=== PATIENT | female | born 1985 | race African-American/Black ===

== ENCOUNTER 2025-08-29 10:07 | Inpatient (IN) | payer OTHER ==
[2025-08-26 13:09] LABS: Hematocrit 32.6 % (34.9-44.5); Hemoglobin 10.1 g/dL (12.0-15.5); Platelet Count 193 10x3/uL (150-450)
[2025-08-26 13:47] LABS: Hep B Surf Ag Non-Reactive S/CO (NonReactive)
[2025-08-26 13:49] LABS: Syphilis Antibody Index 0.08 S/CO (<1.00 Non-Reactive)
[~2025-08-29 10:07] MED LIST: Bicitra 30 ML UDCUP PO PRN; Carboprost 250 MCG/ML AMP IM PRN; Diphenoxylate HCl/Atropine Tablet PO PRN; Famotidine/PF 20 mg/2ml Vial SLOW IVP PRN; Methylergonovine 0.2 MG/ML VIAL IM PRN; Ondansetron PF 4 MG/2 ML Vial IVP PRN; Oxytocin 30 units/NS 500 ML 500 ML IV SCH; Tranexamic Acid 1,000 MG/10 ML VIAL IVP PRN; hydrALAZINE 20 MG/ML VIAL SLOW IVP PRN
[2025-08-29 11:05] VITALS: BMI 38.2
[2025-08-29] MEDS ORDERED: Ketorolac Tromethamine 30 MG (1 mL) VIAL IVP PRN (12:48)
[2025-08-29] MEDS ORDERED: diphenhydrAMINE 50 MG/ML VIAL IVP PRN ×2 (12:48→16:09)
[2025-08-29] MEDS ORDERED: Meperidine HCl/PF 25 MG (1 mL) VIAL SLOW IVP PRN ×2 (12:48→16:09)
[2025-08-29] MEDS ORDERED: HYDROmorphone 0.5 MG/0.5 ML SYRINGE SLOW IVP PRN ×2 (12:48→16:09)
[2025-08-29] MEDS ORDERED: Ondansetron PF 4 MG/2 ML Vial IVP PRN ×4 (12:48→16:09)
[2025-08-29] MEDS ORDERED: Communication Order-Pharmacy FS SCH ×2 (13:00→16:15)
[2025-08-29] MEDS ORDERED: Ketorolac Tromethamine 30 MG (1 mL) VIAL IVP SCH ×2 (13:00→16:15)
[2025-08-29 13:11] LABS: Cocaine Metabolite Screen Negative (Negative); THC/Cannabinoid Screen Negative (Negative); Tricyclic Screen Negative (Negative)
[2025-08-29] MEDS ORDERED: Acetaminophen 325 MG TAB PO PRN (16:03)
[2025-08-29] MEDS ORDERED: Methylergonovine 0.2 MG/ML VIAL IM PRN (16:03)
[2025-08-29] MEDS ORDERED: hydrALAZINE 20 MG/ML VIAL SLOW IVP PRN (16:03)
[2025-08-29] MEDS ORDERED: Oxytocin 30 units/NS 500 ML 500 ML IV SCH (16:15)
[2025-08-29] MEDS: Ondansetron PF 4 MG/2 ML Vial IVP PRN (16:48)
[2025-08-29] MEDS: Ketorolac Tromethamine 30 MG (1 mL) VIAL IVP PRN (19:24)
[2025-08-29] MEDS: Oxytocin 10 UNITS/ML VIAL ONE (19:31)
[2025-08-29] MEDS: PHENYLEPHRINE-NS 100 MCG/ML 10 ML SYRINGE ONE ×3 (19:31→19:32)
[2025-08-29] MEDS: Dexamethasone 10 MG/ML VIAL ONE (19:31)
[2025-08-29] MEDS: Tranexamic Acid 1,000 MG/10 ML VIAL ONE (19:32)
[2025-08-29] MEDS: Ferrous Sulfate 325 MG TAB PO SCH (19:42)
[2025-08-30 03:45] LABS: Hematocrit 24.8 % (34.9-44.5); Hemoglobin 7.8 g/dL (12.0-15.5); Mean Corpuscular Hemoglobin 22.9 pg (27.0-33.0); Mean Corpuscular Volume 72.7 fL (81.6-98.3); Platelet Count 162 10x3/uL (150-450); Red Blood Cell (RBC) Count 3.41 10x6/uL (3.90-5.03); White Blood Cell (WBC) Count 15.57 10x3/uL (3.5-10.5)
[2025-08-30] MEDS: Sodium Ferric Gluconate 250 MG in Sodium Chloride 0.9% 250 ML 250 ML IVPB SCH (07:30)
[2025-08-30] MEDS: Ibuprofen 800 MG TAB PO SCH (21:09)
[2025-08-31 03:27] LABS: Hematocrit 24.0 % (34.9-44.5); Hemoglobin 7.5 g/dL (12.0-15.5)
[2025-08-31] MEDS: Acetaminophen 325 MG TAB PO SCH (08:39)
[2025-08-31] MEDS: Simethicone Chewable 80 MG TAB PO PRN (08:42)
[2025-08-31 11:40] VITALS: BP 148/93; TEMP 97.9
== END 2025-08-31 18:30 | disposition home or self-care (01) | DRG 787 ==
LOC: CSHLD 10:07 → CSHPP 17:56
PROVIDERS: ADMIT Obstetrics & Gynecology; ATTEND Obstetrics & Gynecology
PROC: 10D00Z1 Extraction of Products of Conception, Low, Open Approach (ICD-10-PCS; principal; 2025-08-29)
PROC: 3E03329 Introduction of Other Anti-infective into Peripheral Vein, Percutaneous Approach (ICD-10-PCS; 2025-08-29)
DX: O34.211 Maternal care for low transverse scar from previous cesarean delivery (principal); D62 Acute posthemorrhagic anemia; Z3A.39 39 weeks gestation of pregnancy; Z37.0 Single live birth; O99.02 Anemia complicating childbirth
CPT/HCPCS: 36415; 51702; 80306; 85014; 85018; 85027; 85049; 86780; 86850; 86900; 86901; 87340; 99285; J1100; J1885; J2274; J2405; J2550; J2590; J2916; J7030; J7050